=== PATIENT | female | born 1970 | race Caucasian/White ===

== ENCOUNTER 2024-10-31 07:57 | Emergency (ER) | payer BC, SELFPAY ==
--- NOTE | 2024-10-31 09:46 | ED.GENMED ---
History of Present Illness
General
Chief Complaint: Musculo-Skeletal Complaint
Source: patient and family
Time Seen by Provider: 10/31/24 09:22
History of Present Illness
History of Present Illness:
54-year-old female who presents with a right knee injury. [place] she is not really sure what happened but her knee twisted. She thinks it twisted in a clockwise fashion and bent backwards. She
felt a pop. Today swelling is worse. She states she feels like it is unstable when she tries to move it. No fevers. No other injuries. Family member states that it really swelled up more today
Past History
Past History
ED Past Medical History: HTN, Hypercholesterolemia and Hypothyroidism
Phy Exam
Physical Exam
Physical Exam:
CONSTITUTIONAL Vital signs reviewed, Patient alert and oriented to person, place and time. Well-appearing
HEAD atraumatic, normocephalic.
EYES eyelids normal to inspection, Extraocular muscles intact, Conjunctiva normal, Sclera normal.
NECK normal range of motion, Trachea midline, no jugular venous distention.
RESP no respiratory distress
BACK No obvious deformities
UPPER EXTREMITY Gross Range of motion normal, gross motor strength normal
LOWER EXTREMITY unable to range the right knee due to pain. Significant effusion noted. No warmth or redness. Normal distal pulses. Due to pain, anterior drawer testing was limited. Medial and lateral stressing was also limited. Given the
injury and a amount of pain think it would be very fruitful and patient is thankful. Patella intact. Alignment of the knee normal
NEURO Speech normal, No focal motor deficits include, [place] coma scale 15, Memory normal, Cranial Nerves intact to screening exam.
SKIN Skin warm, dry, and normal in color.
PSYCHIATRIC Patient oriented to person place and time, Normal affect.
Course
Orders/Labs/Results
Orders:
Orders
10/31/24 08:02
CR Knee- Right 4 Or More View* Urgent
Comment:
Reason For Exam: injury, felt a pop
10/31/24 09:47
Knee Immobilizer Right-Treatme ONCE
Hydrocodone 5/APAP 325 [[place] 5/325] 2 tablet PO NOW STA
10/31/24 10:22
Crutches-Treatment ONCE
Vital Signs
Initial and Last Documented VS:
Initial Vital Signs
Temp Pulse Resp Pulse Ox
98.3 F 103 18 99
10/31/24 07:59 10/31/24 07:59 10/31/24 07:59 10/31/24 07:59
Last Documented Vital Signs
Temp Pulse Resp BP Pulse Ox
98.3 F 72 20 135/77 99
10/31/24 07:59 10/31/24 09:50 10/31/24 09:50 10/31/24 09:50 10/31/24 07:59
MDM/Problems Addressed
Differential Diagnosis Includes:
MCL injury, ACL injury, PCL injury, LCL injury, meniscus injury, fracture
MDM/Problems Addressed:
Suspected ACL injury, knee effusion, knee injury
*Radiology
Radiology exam reviewed: preliminary read by ED provider (No obvious fracture)
*Pulse Oximetry
Patient hypoxic: no
*Critical Care Note
Total Time (30-74mins, 75-104mins- exclusive of procedures): Not Applicable
Data Reviewed
Source: patient and family
Patient Management
Escalation/DeEscalation of care consider admission/obs:
Clearly with an injury in light of the amount of fluid in her right knee. Offered arthrocentesis but patient would like to hold off for now. I did chief counsel her that the fluid and swelling could return even if we do perform arthrocentesis. Will
place immobilizer. She already has crutches. Needs orthopedic follow-up for MRI. Recommended rest, ice elevation
ED Attending Note
-
Portions of this chart may have been created with voice recognition software.� Occasional wrong word or��sound alike� substitutions may have occurred due to the inherent limitations of voice recognition software.
Discharge Plan
Departure
Patient Disposition: Home (Routine Discharge)
Date of Disposition: 10/31/24
Time of Disposition: 09:46
Patient with high blood pressure during this ER visit?: No
Discharge Problem:
Injury of knee
Instructions: Knee Immobilizer (DC), Ligament Injuries in the Knee, Opioids for Short-Term Treatment of Pain ED
Prescriptions:
New
hydrocodone-acetaminophen 5-325 mg tablet
2 tab PO Q6H PRN (Reason: Pain) Qty: 12 0RF
Referrals:
Edward Byers MD [Family Provider] -
Zia Turcios MD [Active] -
Activity Restrictions/Additional Instructions:
Please rest, ice and elevate your knee. Return immediately for fevers, worsening pain or any other concerns. Please follow-up with orthopedics as you will need an MRI to further evaluate your injuries.
Interventions
Interventions:
*Risk Screen - Suicide Last Done: 10/31/24 07:59
*General Assessment Last Done: 10/31/24 07:59
*Neglect/Abuse Screening Last Done: 10/31/24 09:43
ED- Fall Risk Assessment Last Done: 10/31/24 10:54
*ED COVID-19 Vaccine History Last Done: 10/31/24 07:59
*Nursing Disposition Last Done: 10/31/24 10:54
ED-Musculoskeletal Assessment Last Done: 10/31/24 09:43
Discharge Date and Time
Discharge Date/Time: 10/31/24 10:54
Print Language: IRANIAN
[2024-10-31 09:50] VITALS: BP 135/77
[2024-10-31] MEDS: NORCO 5/325 2 TABLET PO (09:55)
== END 2024-10-31 10:54 | disposition home or self-care (01) ==
LOC: EMR 07:57
PROVIDERS: EMERGENCY PHYSICIAN Emergency Medicine; FAMILY PHYSICIAN Student in an Organized Health Care Education/Training Program
DX: S89.91XA Unspecified injury of right lower leg, initial encounter (principal); X50.1XXA Overexertion from prolonged static or awkward postures, initial encounter
CPT/HCPCS: 99283; 29505; 73564